=== PATIENT | female | born 1980 | race Caucasian/White ===

== ENCOUNTER → 2016-09-21 | Outpatient (CLI) | payer OTHER ==
[2015-12-18 21:34] VITALS: BP 121/65
[~2016-09-21] MED LIST: HYDR10SY8 PO; OMEP40CA5 PO; PHEN37.5 PO; PRED20TA PO; SERT100T PO; SERT100T8 PO; SIMV20TA3 PO; TOPI50TA4 PO
--- NOTE | 2016-09-21 09:57 | RAD ---
Thyroid ultrasound, 09/21/2016: History: Follow-up thyroid nodules Comparison is made to a studies from 05/13/2015 and 12/06/2014. The right lobe of the gland measures 5.0 x 1.6 x 1.5 cm while the left lobe of the gland measures 4.6 x 1.8 x 1.6 cm. There is a persistent nodule in the thyroid isthmus. It measures approximately 1.4 x 1.4 x 1.1 cm. Its margins are smooth. It demonstrates a central component which is rounded and slightly echogenic with a hypoechoic rim of medium thickness. There is color flow within this nodule. No calcifications are evident. It appears to be unchanged since 12/06/2014, favoring a benign etiology. There is a 2-3 mm well marginated, slightly hypoechoic nodule in the lower pole of the left lobe of gland which is also unchanged. No new or enlarging thyroid nodule is evident. IMPRESSION: Stable thyroid nodules as described above.
== END | disposition home or self-care (01) ==
LOC: US 06:40
PROVIDERS: ATTEND Surgery
DX: E04.1 Nontoxic single thyroid nodule (principal)
CPT/HCPCS: 76536